=== PATIENT | male | born 1940 | race Caucasian/White ===

== ENCOUNTER 2024-11-18 20:11 | Inpatient (IN) ==
[2024-11-18 21:00] LABS: Hematocrit (blood only) 46.0 % (42.0-52.0); Hemoglobin 15.4 g/dl (14.0-18.0); Immature Granulocytes # (auto) 0.07 K/uL (0.01-0.20); Immature Granulocytes % (auto) 0.8 %; Mean Corpuscular Hemoglobin 30.0 pg (25.0-34.0); Mean Corpuscular Volume 89.5 fL (80.0-100.0); Platelet Count 199 K/uL (130-400); RDW Standard Deviation 41.1 fL (36.4-46.3); Red Blood Count 5.14 M/uL (4.70-6.10); White Blood Count 9.05 K/ul (4.8-10.8)
[2024-11-18 21:17] LABS: Alanine Aminotransferase 11.0 U/L (7-52); Albumin Globulin Ratio 1.2 (0.9-2); Alkaline Phosphatase 87.0 U/L (34-104); Anion Gap 10.0 (3-11); Bilirubin,Total 1.0 mg/dl (0.2-1.0); Blood Urea Nitrogen 13.0 mg/dl (6-23); Calcium 9.6 mg/dl (8.6-10.3); Carbon Dioxide 24.0 mmol/L (21-32); Chloride 103.0 mmol/L (98-107); Creatinine Clr Calc Pharmacy 55.6 ml/min; Globulin 3.6 gm/dl (2.5-4.0); Glucose 150.0 mg/dl (70-99(Fasting)); Magnesium 2.1 mg/dl (1.7-2.4); Potassium 4.1 mmol/L (3.5-5.1); Sodium 137.0 mmol/L (136-145); Total Protein 7.9 gm/dl (6.0-8.3)
--- NOTE | 2024-11-18 21:45 | Emergency Department Note ---
Impression & Plan Syncope Admission ED Provider Note HPI: History obtained from patient. The patient is a 83-year-old gentleman with history of CAD, who presents the emergency department with chief complaint of syncope. 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 Patient states that he was seated in a high chair at the time and did fall to the ground and hit his head. On arrival here to the ED the patient is alert, he states that he actually ate a sandwich prior to arrival to the ED and he thinks this helped with his symptoms. He states he did not eat earlier in the day. Patient denies any chest pain or shortness of breath. On arrival here to the ED the patient is otherwise hemodynamically stable, he does not have any focal deficits. ROS: - Per HPI Differential Diagnosis: Vasovagal event, arrhythmia to include SVT, atrial fibrillation with RVR, ventricular tachycardia, high degree heart block, aortic stenosis, ACS, amongst other potential pathologies. *Outpatient medications and allergy history reviewed. PE: General: Alert HEENT: Normocephalic, trachea midline Eyes: Extraocular eye movement is intact, no scleral erythema Pulmonary: Clear to auscultation bilaterally, no wheezing Cardio: Regular rate and rhythm GI: Abdomen is soft to palpation : No suprapubic tenderness MSK: No evidence of trauma or malformation of the extremities, no edema Skin: No evidence of rash Neuro: Alert, no focal deficits Psychiatric: Cooperative INDEPENDENT INTERPRETATIONS: court recording monitor: (As interpreted by myself): - An order was placed for continuous cardiac monitoring - Patient was noted to be in sinus rhythm with a rate of 60 EKG: (As interpreted by myself): Rate: 59 Rhythm: Sinus bradycardia with first-degree AV block Intervals: LA interval 268 ms, QRS 138 ms, otherwise within normal limits ST changes: No ST elevation Time: 2027 Chest x-ray: (As interpreted by myself): No acute disease Interventions provided in ED: - IV fluid bolus Medical Decision Making: IV was established and lab work obtained, patient was placed on court recording monitor. Lab work shows no leukocytosis, hemoglobin is normal, platelet count is normal, CMP does not show any evidence of any critical findings. Troponin is mildly elevated at 21.4, EKG per my interpretation shows a sinus bradycardia with a rate of 59, LA interval is slightly prolonged at 268 ms, no acute ischemic changes are noted. Chest x-ray does not show any evidence of acute disease. CT imaging of the head was obtained that did not show any evidence of any acute intracranial process. Patient was given IV fluids here in the ED, on my reassessment he tells me that he continues to feel well, he denies any chest pain or shortness of breath. Given the patient's history of CAD with syncopal event today and complete loss of consciousness, I do feel that he would benefit from admission for further workup and likely echocardiogram. Patient was in agreement. Case was discussed with the on-call hospitalist, Dr. Gomez, and the patient was placed for admission in stable condition. Consultants/Discussions held with other healthcare providers: - Hospitalist, Dr. Gomez Disposition discussion held by myself with: - Patient Diagnosis: 1. Syncope and collapse, acute 2. Closed head injury, acute 3. History of CAD, chronic 4. Elevated troponin, acute Disposition: Admission Connor Ballard DO Emergency Medicine Past Med/Surg History Problem List (Updated 08/16/21 @ 16:01 by Alexey Rick MD) RBBB (right bundle branch block) First degree atrioventricular block by electrocardiography Ectopic atrial rhythm Dyslipidemia Mitral regurgitation Hypertension Cardiac murmur ASCVD (arteriosclerotic cardiovascular disease) Proteinuria Colon cancer screening Encounter for pre-operative examination Medical History Arthritis Bradycardia Hyperlipidemia Hypertension Myocardial Infarction Surgical History H/O angioplasty History of arthroscopy History of tonsillectomy Family History Mother Family history of diabetes mellitus Other No family history of adverse response to anesthesia Social History Smoking Status: Never smoker Second Hand Exposure: No; Do You Dip or Chew Tobacco: No; Hx Alcohol Use: Yes Alcohol type: wine Preferred Language: Togolese Communication Ability: Effective Physical Therapy Supervisor Required: No Beliefs That Will Affect Care: None Current Living Situation: Alone Feels Safe at Home: Yes Assistive Devices: Glasses Allergies Allergies Allergy/AdvReac Type Severity Reaction Status Date / Time No Known Allergies Allergy Unknown Verified 11/18/24 22:16 Home Meds Home Medications Medication Instructions Recorded Confirmed atorvastatin 40 mg tablet 20 mg PO QDL 03/02/20 11/18/24 lisinopril 40 mg tablet 40 mg PO QDL 03/02/20 11/18/24 amlodipine 2.5 mg tablet 5 mg PO QDL 07/25/20 11/18/24 acetaminophen 325 mg tablet 975 mg PO Q6H PRN PAIN/FEVER 11/18/24 11/18/24 (Tylenol) albuterol sulfate 90 mcg/actuation 2 puff inhalation Q4H PRN Wheezing 11/18/24 11/18/24 aerosol inhaler aspirin 81 mg tablet,delayed 81 mg PO QDL 11/18/24 11/18/24 release cholecalciferol (vitamin D3) 25 50 mcg PO QDL 11/18/24 11/18/24 mcg (1,000 unit) capsule (Vitamin D3) ibuprofen 200 mg tablet 200 mg PO Q6H PRN PAIN/FEVER 11/18/24 11/18/24 sildenafil 100 mg tablet (Viagra) 100 mg PO DAILY PRN Erectile 11/18/24 11/18/24 Dysfunction Results & Data (ED) Vital Signs Vital Signs - 24 hr 11/18/24 20:15 11/18/24 21:00 11/18/24 21:36 Temperature 36.4 C Temperature Source Oral Pulse Rate 73 56 L Pulse Rate [Apical] 61 Pulse Rhythm Regular Respiratory Rate 16 20 18 Respiratory Effort / Characteristics Non-Labored Spontaneous Non-Labored Spontaneous Respiratory Depth Normal Normal Respiratory Pattern Regular Regular Blood Pressure 138/80 Blood Pressure [Right Arm] 121/59 L Blood Pressure Mean 99 Blood Pressure Mean [Right Arm] 79 Blood Pressure Position [Right Arm] Lying Pulse Oximetry 97 98 96 Oxygen Delivery Method Room Air Room Air Room Air Sepsis Recent Fever Within 48 Hours No Sepsis New/Unexplained Change in Mental Status No Sepsis Action Taken by Nursing No Action Required 11/18/24 22:00 11/18/24 22:31 11/18/24 23:00 Temperature Temperature Source Pulse Rate 52 L Pulse Rate [Apical] 54 L 52 L Pulse Rhythm Respiratory Rate 16 21 Respiratory Effort / Characteristics Non-Labored Non-Labored Spontaneous Respiratory Depth Normal Normal Respiratory Pattern Regular Regular Blood Pressure Blood Pressure [Right Arm] 110/66 118/73 Blood Pressure Mean Blood Pressure Mean [Right Arm] 80 88 Blood Pressure Position [Right Arm] Lying Lying Pulse Oximetry 96 97 Oxygen Delivery Method Room Air Room Air Sepsis Recent Fever Within 48 Hours Sepsis New/Unexplained Change in Mental Status Sepsis Action Taken by Nursing 11/19/24 00:09 Temperature Temperature Source Pulse Rate Pulse Rate [Apical] 55 L Pulse Rhythm Respiratory Rate 19 Respiratory Effort / Characteristics Non-Labored Spontaneous Respiratory Depth Normal Respiratory Pattern Regular Blood Pressure Blood Pressure [Right Arm] 143/87 H Blood Pressure Mean Blood Pressure Mean [Right Arm] 105 Blood Pressure Position [Right Arm] Lying Pulse Oximetry 98 Oxygen Delivery Method Room Air Sepsis Recent Fever Within 48 Hours Sepsis New/Unexplained Change in Mental Status Sepsis Action Taken by Nursing Laboratory Data 11/18/24 20:45 11/18/24 20:45 Lab Results 11/18/24 11/18/24 11/18/24 Range/Units 20:24 20:45 22:00 WBC 9.05 (4.8-10.8) K/ul RBC 5.14 (4.70-6.10) M/uL Hgb 15.4 (14.0-18.0) g/dl Hct 46.0 (42.0-52.0) % MCV 89.5 (80.0-100.0) fL MCH 30.0 (25.0-34.0) pg MCHC 33.5 (32.0-36.0) g/dL RDW Std Deviation 41.1 (36.4-46.3) fL RDW Coeff of Mike 12.5 (11.5-14.5) % Plt Count 199 (130-400) K/uL MPV 10.0 (9.4-12.4) fL Immature Gran % (Auto) 0.8 % Neut % (Auto) 80.2 % Lymph % (Auto) 10.9 % [place] % (Auto) 6.9 % Eos % (Auto) 0.6 % Baso % (Auto) 0.6 % Neut # (Auto) 7.27 H (1.40-6.50) K/uL Lymph # (Auto) 0.99 L (1.20-3.40) K/uL [place] # (Auto) 0.62 H (0.11-0.59) K/uL Eos # (Auto) 0.05 (0.00-0.50) K/uL Baso # (Auto) 0.05 (0.00-0.20) K/uL Immature Gran # (Auto) 0.07 (0.01-0.20) K/uL Sodium 137 (136-145) mmol/L Potassium 4.1 (3.5-5.1) mmol/L Chloride 103 (98-107) mmol/L Carbon Dioxide 24 (21-32) mmol/L Anion Gap 10 (3-11) BUN 13 (6-23) mg/dl Creatinine 1.19 (0.6-1.4) mg/dl Est Cr Clr Drug Dosing 55.6 ml/min eGFR 61.37 BUN/Creatinine Ratio 10.9 (10-20) Glucose 150 H (70-99(Fasting)) mg/dl POC Glucose 139 H (70-99) mg/dl Calcium 9.6 (8.6-10.3) mg/dl Magnesium 2.1 (1.7-2.4) mg/dl Total Bilirubin 1.0 (0.2-1.0) mg/dl AST 16 (13-39) U/L ALT 11 (7-52) U/L Alkaline Phosphatase 87 (34-104) U/L Troponin I High Sens 21.4 H (0-20) pg/ml Total Protein 7.9 (6.0-8.3) gm/dl Albumin 4.3 (3.4-5.0) gm/dl Globulin 3.6 (2.5-4.0) gm/dl Albumin/Globulin Ratio 1.2 (0.9-2) Urine Color Dark Yellow Urine Appearance Clear (Clear) Urine pH 5.0 (4.5-7.5) Ur Specific [place] 1.027 (1.000-1.030) Urine Protein 3+ H (Negative) Urine Glucose (UA) Negative (Negative) Urine Ketones Trace H (Negative) Urine Blood Negative (Negative) Urine Nitrite Negative (Negative) Urine Bilirubin 1+ H (Negative) Urine Urobilinogen Negative (Negative) Ur Leukocyte Esterase Trace H (Negative) Urine WBC (Auto) 0-5 (0-5) /hpf Urine RBC (Auto) 0-2 (0-2) /hpf U Hyaline Cast (Auto) >20 H (0-2) /lpf U Epithel Cells (Auto) 0-2 (0-2) /hpf Urine Bacteria (Auto) None Seen (None Seen) Talc Crystals Present H (None Prsent) Urine Comment Administered Medications Discontinued Medications Sodium Chloride (Nss) 500 mls @ 999 mls/hr IV .Q31M ONE Stop: 11/18/24 22:04 Last Infusion: 11/18/24 23:31 Dose: Infused Documented By: Admin: 11/18/24 22:11 Dose: 999 mls/hr Documented By: ANGIE Imaging Data Radiologist's Impression: Head CT 11/18/24 21:34 Exam(s): CT HEAD Without Contrast EXAM: CT Head Without Intravenous Contrast CLINICAL HISTORY: Reason for exam: head injury. TECHNIQUE: Axial computed tomography images of the head/brain without intravenous contrast. CTDI is 35.65 mGy and DLP is 625.8 mGy-cm. Automated exposure control was utilized for the study. A dose lowering technique was utilized adhering to the principles of ALARA. COMPARISON: No relevant prior studies available. FINDINGS: Brain: No acute intracranial hemorrhage. There is some decreased attenuation within the white matter.. Ventricles: There is prominence of the ventricular system with deepening of the sulci consistent with cortical and central atrophy. Bones/joints: Unremarkable. No acute fracture. Soft tissues: Unremarkable. Sinuses: Unremarkable as visualized. No acute sinusitis. Mastoid air cells: Unremarkable as visualized. No mastoid effusion. IMPRESSION: Atrophy. Nonspecific white matter disease. Electronically signed by: Gabriel Whiting MD 11/18/24 23:10 PM Chest X-Ray 11/18/24 23:28 Exam(s): XR CXR 1 VIEW EXAM: XR Chest, 1 View CLINICAL HISTORY: Reason for exam: syncope. TECHNIQUE: Frontal view of the chest. COMPARISON: No relevant prior studies available. FINDINGS: Lungs: . No consolidation. Pleural space: No pleural effusion is seen. No pneumothorax. Heart: The heart is top normal in size.. Mediastinum: There is uncoiling calcification thoracic aorta.. IMPRESSION: No acute pulmonary disease. Electronically signed by: Gabriel Whiting MD 11/19/24 00:04 AM Discharge Plan Visit Data Chief Complaint: Syncope Stated Complaint: LIGHTHEADED, SYNCOPE, HIT HEAD ED Provider: Bialas,Connor A. Prescriptions Prescriptions: No Action atorvastatin 40 mg Tablet 20 mg PO QDL lisinopril 40 mg Tablet 40 mg PO QDL amlodipine 2.5 mg Tablet 5 mg PO QDL acetaminophen [Tylenol] 325 mg Tablet 975 mg PO Q6H PRN (Reason: PAIN/FEVER) aspirin 81 mg Tablet,Delayed Release (Dr/Ec) 81 mg PO QDL sildenafil [Viagra] 100 mg Tablet 100 mg PO DAILY PRN (Reason: Erectile Dysfunction) Rx Instructions: administer 30 minutes to 4 hours before activity ibuprofen 200 mg Tablet 200 mg PO Q6H PRN (Reason: PAIN/FEVER) albuterol sulfate 90 mcg/actuation Hfa Aerosol Inhaler 2 puff INHALATION Q4H PRN (Reason: Wheezing) cholecalciferol (vitamin D3) [Vitamin D3] 25 mcg (1,000 unit) Capsule 50 mcg PO QDL Discharge Problem:
[2024-11-18] MEDS: SODIUM CHLORIDE 0.9% 500 ML IV ONE (22:11)
[2024-11-18 22:25] LABS: Appearance Urine Clear (Clear); Bacteria Urine Automated None Seen (None Seen); Cast Urine Automated >20 /lpf (0-2); Epithelial Cell Urine Auto 0-2 /hpf (0-2); Glucose Urine UA Negative (Negative); RBC Urine Automated 0-2 /hpf (0-2); Starch Talc Urine Present (None Prsent); WBC Urine Automated 0-5 /hpf (0-5)
--- NOTE | 2024-11-18 23:11 | CT Scan Report ---
Exam(s): CT HEAD Without Contrast EXAM: CT Head Without Intravenous Contrast CLINICAL HISTORY: Reason for exam: head injury. TECHNIQUE: Axial computed tomography images of the head/brain without intravenous contrast. CTDI is 35.65 mGy and DLP is 625.8 mGy-cm. Automated exposure control was utilized for the study. A dose lowering technique was utilized adhering to the principles of ALARA. COMPARISON: No relevant prior studies available. FINDINGS: Brain: No acute intracranial hemorrhage. There is some decreased attenuation within the white matter.. Ventricles: There is prominence of the ventricular system with deepening of the sulci consistent with cortical and central atrophy. Bones/joints: Unremarkable. No acute fracture. Soft tissues: Unremarkable. Sinuses: Unremarkable as visualized. No acute sinusitis. Mastoid air cells: Unremarkable as visualized. No mastoid effusion. IMPRESSION: Atrophy. Nonspecific white matter disease. Electronically signed by: Gabriel Whiting MD 11/18/24 23:10 PM
--- NOTE | 2024-11-19 00:05 | XRay Report ---
Exam(s): XR CXR 1 VIEW EXAM: XR Chest, 1 View CLINICAL HISTORY: Reason for exam: syncope. TECHNIQUE: Frontal view of the chest. COMPARISON: No relevant prior studies available. FINDINGS: Lungs: . No consolidation. Pleural space: No pleural effusion is seen. No pneumothorax. Heart: The heart is top normal in size.. Mediastinum: There is uncoiling calcification thoracic aorta.. IMPRESSION: No acute pulmonary disease. Electronically signed by: Gabriel Whiting MD 11/19/24 00:04 AM
--- NOTE | 2024-11-19 00:35 | History & Physical Report ---
Date of Service November 19, 2024 Assessment & Plan (1) Syncope: (2) Cardiac murmur: (3) Ectopic atrial rhythm: (4) First degree atrioventricular block by electrocardiography: Plan The patient is an 83-year-old male with a past medical history including coronary artery disease status post [place] 2002, hypertension, CKD, dyslipidemia, right bundle branch block, first-degree heart block, ED, and asthma. 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 He reports that he did bump the back of his head when he fell, but has no residual discomfort. He had no previous occurrence of passing out. He reports that he has a dental infection that has caused him to eat significantly less than usual over the past day and a half, and was to see a dentist in the next few days. He and a friend went to [employer] after work, and he reports that he feels better after eating a sandwich there. He reports that he sees the [facility] as his primary physician, either in [place], or if it is more significant he goes to [place]. Workup in the emergency department included a CT scan of head which s howed age-appropriate atrophy, chest x-ray which was negative, chemistry profile showed a glucose of 150, and CBC with differential was normal. Troponin was 21.4, with upper range 20.0. EKG shows sinus bradycardia with first-degree AV block with premature supraventricular complexes. Left axis deviation, right bundle branch block, septal infarct age undetermined. [facility] Syncope- Differential including but not limited to: Hypoglycemia, vasovagal, heart arrhythmia, dehydration, others Hypertension/ectopic atrial rhythm/CAD/history of [place] 2003/heart murmur- The patient will be admitted to telemetry for serial cardiac enzymes, serial EKG's, cardiac rhythm monitoring and a 2-D echocardiogram with Dopplers. Continue amlodipine every morning, lisinopril every afternoon, aspirin 81 mg daily. Initial troponin 21.4. Repeat now and in the a.m. EKG with right bundle branch block and first-degree heart block, no acute ST-T changes Heart murmur on examination noted, patient with reported history of mitral regurgitation CKD- Creatinine 1.19 Previous records from 2021 indicate creatinine 0.95 Hyperlipidemia- Continue atorvastatin Hyperglycemia- Glucose 150 on admission No record of diabetes or prediabetes Check hemoglobin A1c in the a.m. 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 He reports that he did bump the back of his head when he fell, but has no residual discomfort. He had no previous occurrence of passing out. He reports that he has a dental infection that has caused him to eat significantly less than usual over the past day and a half, and was to see a dentist in the next few days. He and a friend went to [employer] after work, and he reports that he feels better after eating a sandwich there. He reports that he sees the [facility] as his primary physician, either in [place], or if it is more significant he goes to [place]. Primary Care Provider: NO PCP The patient is an 83-year-old male with a past medical history including coronary artery disease status post [place] 2002, hypertension, CKD, dyslipidemia, right bundle branch block, first-degree heart block, ED, and asthma. 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 He reports that he did bump the back of his head when he fell, but has no residual discomfort. He had no previous occurrence of passing out. He reports that he has a dental infection that has caused him to eat significantly less than usual over the past day and a half, and was to see a dentist in the next few days. He and a friend went to [employer] after work, and he reports that he feels better after eating a sandwich there. He reports that he sees the [facility] as his primary physician, either in [place], or if it is more significant he goes to [place]. Workup in the emergency department included a CT scan of head which showed age-appropriate atrophy, chest x-ray which was negative, chemistry profile showed a glucose of 150, and CBC with differential was normal. Troponin was 21.4, with upper range 20.0. EKG shows sinus bradycardia with first-degree AV block with premature supraventricular complexes. Left axis deviation, right bundle branch block, septal infarct age undetermined. [facility] Allergies Allergy/AdvReac Type Severity Reaction Status Date / Time No Known Allergies Allergy Unknown Verified 11/18/24 22:16 Home Medications Medication Instructions Recorded Confirmed Type atorvastatin 40 mg tablet 20 mg PO QDL 03/02/20 11/18/24 History lisinopril 40 mg tablet 40 mg PO QDL 03/02/20 11/18/24 History amlodipine 2.5 mg tablet 5 mg PO QDL 07/25/20 11/18/24 History acetaminophen 325 mg tablet 975 mg PO Q6H PRN PAIN/FEVER 11/18/24 11/18/24 History (Tylenol) albuterol sulfate 90 mcg/actuation 2 puff inhalation Q4H PRN Wheezing 11/18/24 11/18/24 History aerosol inhaler aspirin 81 mg tablet,delayed 81 mg PO QDL 11/18/24 11/18/24 History release cholecalciferol (vitamin D3) 25 50 mcg PO QDL 11/18/24 11/18/24 History mcg (1,000 unit) capsule (Vitamin D3) ibuprofen 200 mg tablet 200 mg PO Q6H PRN PAIN/FEVER 11/18/24 11/18/24 History sildenafil 100 mg tablet (Viagra) 100 mg PO DAILY PRN Erectile 11/18/24 11/18/24 History Dysfunction Past Med/Surg History Problem List (Updated 11/19/24 @ 00:37 by Background Damayela) Syncope (Acute) RBBB (right bundle branch block) First degree atrioventricular block by electrocardiography Ectopic atrial rhythm Dyslipidemia Mitral regurgitation Hypertension Cardiac murmur ASCVD (arteriosclerotic cardiovascular disease) Proteinuria Colon cancer screening Encounter for pre-operative examination Medical History Arthritis Bradycardia Hyperlipidemia Hypertension Myocardial Infarction Surgical History H/O angioplasty History of arthroscopy History of tonsillectomy Family History Mother Family history of diabetes mellitus Other No family history of adverse response to anesthesia Social History Smoking Status: Never smoker Second Hand Exposure: No; Do You Dip or Chew Tobacco: No; Hx Alcohol Use: Yes Alcohol type: wine Preferred Language: Armenian Communication Ability: Effective Product Advisor Required: No Beliefs That Will Affect Care: None Current Living Situation: Alone Feels Safe at Home: Yes Assistive Devices: Glasses Review of Systems Review of Systems: The patient denies chest pain, palpitations, shortness of breath, dyspnea on exertion, cough, lower extremity swelling, sore throat, fevers, chills, sweats, fatigue, nausea, vomiting, diarrhea , constipation, abdominal pain, pelvic pain, blood in urine or stool, dysuria, urinary frequency or urgency, lightheadedness, dizziness, headache, rash, abnormal bruising or bleeding, imbalance, focal or generalized weakness, numbness or tingling in arms or legs, generalized arthralgias or myalgias, back or neck pain, or night sweats. The review of systems is otherwise negative other than for that already noted above, and at least 10 systems have been reviewed. Physical Exam Physical Exam: The patient is awake, alert and oriented 3, well developed and well nourished, normocephalic and atraumatic, lying in bed and in no acute distress. HEENT--PERRL, EOMI, mucous membranes and oropharynx normal Neck--supple. No JVD. No bruits. Thyroid normal, trachea midline, no adenopathy. Heart--normal S1 and S2. Occasional premature contractions. 2/6 systolic murmur at apex and left lower sternal border. Lungs--clear bilaterally, no respiratory distress, no accessory muscle use. Abdomen--normal bowel sounds and soft. Nontender. Nondistended, no hernias or masses, no organomegaly. Extremities--no cyanosis or clubbing. No edema. There are good distal pulses b/l. Dermatologic--normal skin turgor, normal color, no abnormal lymph nodes, no rash. Neurologic--cranial nerves II through XII grossly intact. Rheumatologic--normal range of motion. Psychiatric--normal affect. Results & Data Results & Data Vital Signs (Past 12 Hours) Vital Signs Temp Pulse Pulse Resp BP BP Pulse Ox 11/19/24 00:09 55 L 19 143/87 H 98 11/18/24 23:00 52 L 21 118/73 97 11/18/24 22:31 52 L 11/18/24 22:00 54 L 16 110/66 96 11/18/24 21:36 56 L 18 96 11/18/24 21:00 61 20 121/59 L 98 11/18/24 20:15 36.4 C 73 16 138/80 97 O2 Del Method 11/19/24 00:09 Room Air 11/18/24 23:00 Room Air 11/18/24 22:31 11/18/24 22:00 Room Air 11/18/24 21:36 Room Air 11/18/24 21:00 Room Air 11/18/24 20:15 Room Air Laboratory Results Laboratory Results WBC 9.05 K/ul (4.8-10.8) 11/18/24 20:45 RBC 5.14 M/uL (4.70-6.10) 11/18/24 20:45 Hgb 15.4 g/dl (14.0-18.0) 11/18/24 20:45 Hct 46.0 % (42.0-52.0) 11/18/24 20:45 MCV 89.5 fL (80.0-100.0) 11/18/24 20:45 MCH 30.0 pg (25.0-34.0) 11/18/24 20:45 MCHC 33.5 g/dL (32.0-36.0) 11/18/24 20:45 RDW Std Deviation 41.1 fL (36.4-46.3) 11/18/24 20:45 RDW Coeff of Mike 12.5 % (11.5-14.5) 11/18/24 20:45 Plt Count 199 K/uL (130-400) 11/18/24 20:45 MPV 10.0 fL (9.4-12.4) 11/18/24 20:45 Immature Gran % (Auto) 0.8 % 11/18/24 20:45 Neut % (Auto) 80.2 % 11/18/24 20:45 Lymph % (Auto) 10.9 % 11/18/24 20:45 [place] % (Auto) 6.9 % 11/18/24 20:45 Eos % (Auto) 0.6 % 11/18/24 20:45 Baso % (Auto) 0.6 % 11/18/24 20:45 Neut # (Auto) 7.27 K/uL (1.40-6.50) H 11/18/24 20:45 Lymph # (Auto) 0.99 K/uL (1.20-3.40) L 11/18/24 20:45 [place] # (Auto) 0.62 K/uL (0.11-0.59) H 11/18/24 20:45 Eos # (Auto) 0.05 K/uL (0.00-0.50) 11/18/24 20:45 Baso # (Auto) 0.05 K/uL (0.00-0.20) 11/18/24 20:45 Immature Gran # (Auto) 0.07 K/uL (0.01-0.20) 11/18/24 20:45 Sodium 137 mmol/L (136-145) 11/18/24 20:45 Potassium 4.1 mmol/L (3.5-5.1) 11/18/24 20:45 Chloride 103 mmol/L (98-107) 11/18/24 20:45 Carbon Dioxide 24 mmol/L (21-32) 11/18/24 20:45 Anion Gap 10 (3-11) 11/18/24 20:45 BUN 13 mg/dl (6-23) 11/18/24 20:45 Creatinine 1.19 mg/dl (0.6-1.4) 11/18/24 20:45 Est Cr Clr Drug Dosing 55.6 ml/min 11/18/24 20:45 eGFR 61.37 11/18/24 20:45 BUN/Creatinine Ratio 10.9 (10-20) 11/18/24 20:45 Glucose 150 mg/dl (70-99(Fasting)) H 11/18/24 20:45 POC Glucose 139 mg/dl (70-99) H 11/18/24 20:24 Calcium 9.6 mg/dl (8.6-10.3) 11/18/24 20:45 Magnesium 2.1 mg/dl (1.7-2.4) 11/18/24 20:45 Total Bilirubin 1.0 mg/dl (0.2-1.0) 11/18/24 20:45 AST 16 U/L (13-39) 11/18/24 20:45 ALT 11 U/L (7-52) 11/18/24 20:45 Alkaline Phosphatase 87 U/L (34-104) 11/18/24 20:45 Troponin I High Sens 21.4 pg/ml (0-20) H 11/18/24 20:45 Total Protein 7.9 gm/dl (6.0-8.3) 11/18/24 20:45 Albumin 4.3 gm/dl (3.4-5.0) 11/18/24 20:45 Globulin 3.6 gm/dl (2.5-4.0) 11/18/24 20:45 Albumin/Globulin Ratio 1.2 (0.9-2) 11/18/24 20:45 Urine Color Dark Yellow 11/18/24 22:00 Urine Appearance Clear (Clear) 11/18/24 22:00 Urine pH 5.0 (4.5-7.5) 11/18/24 22:00 Ur Specific Blanch 1.027 (1.000-1.030) 11/18/24 22:00 Urine Protein 3+ (Negative) H 11/18/24 22:00 Urine Glucose (UA) Negative (Negative) 11/18/24 22:00 Urine Ketones Trace (Negative) H 11/18/24 22:00 Urine Blood Negative (Negative) 11/18/24 22:00 Urine Nitrite Negative (Negative) 11/18/24 22:00 Urine Bilirubin 1+ (Negative) H 11/18/24 22:00 Urine Urobilinogen Negative (Negative) 11/18/24 22:00 Ur Leukocyte Esterase Trace (Negative) H 11/18/24 22:00 Urine WBC (Auto) 0-5 /hpf (0-5) 11/18/24 22:00 Urine RBC (Auto) 0-2 /hpf (0-2) 11/18/24 22:00 U Hyaline Cast (Auto) >20 /lpf (0-2) H 11/18/24 22:00 U Epithel Cells (Auto) 0-2 /hpf (0-2) 11/18/24 22:00 Urine Bacteria (Auto) None Seen (None Seen) 11/18/24 22:00 Talc Crystals Present (None Prsent) H 11/18/24 22:00 Urine Comment 11/18/24 22:[address] 11/18/24 21:34 Exam(s): CT HEAD Without Contrast EXAM: CT Head Without Intravenous Contrast CLINICAL HISTORY: Reason for exam: head injury. TECHNIQUE: Axial computed tomography images of the head/brain without intravenous contrast. CTDI is 35.65 mGy and DLP is 625.8 mGy-cm. Automated exposure control was utilized for the study. A dose lowering technique was utilized adhering to the principles of ALARA. COMPARISON: No relevant prior studies available. FINDINGS: Brain: No acute intracranial hemorrhage. There is some decreased attenuation within the white matter.. Ventricles: There is prominence of the ventricular system with deepening of the sulci consistent with cortical and central atrophy. Bones/joints: Unremarkable. No acute fracture. Soft tissues: Unremarkable. Sinuses: Unremarkable as visualized. No acute sinusitis. Mastoid air cells: Unremarkable as visualized. No mastoid effusion. IMPRESSION: Atrophy. Nonspecific white matter disease. Electronically signed by: Gabriel Whiting MD 11/18/24 23:10 PM Chest X-Ray 11/18/24 23:28 Exam(s): XR CXR 1 VIEW EXAM: XR Chest, 1 View CLINICAL HISTORY: Reason for exam: syncope. TECHNIQUE: Frontal view of the chest. COMPARISON: No relevant prior studies available. FINDINGS: Lungs: . No consolidation. Pleural space: No pleural effusion is seen. No pneumothorax. Heart: The heart is top normal in size.. Mediastinum: There is uncoiling calcification thoracic aorta.. IMPRESSION: No acute pulmonary disease. Electronically signed by: Gabriel Whiting MD 11/19/24 00:04 AM Code Status & VTE Plan Code Status Full code VTE Prophylaxis Plan VTE Prophylaxis will be ordered: Yes PG Care Time/CCT Total # of Minutes Spent Total Time Spent with Patient: Total time spent is greater than 50% in coordination of care (as documented) at patient's floor/unit and/or counseling patient: Coding Level of Care Code 82170 INT INP/OBS CARE 3/75MIN Diagnoses Syncope R55 Cardiac murmur R01.1 Ectopic atrial rhythm I49.1 First degree atrioventricular block by electrocardiography I44.0
[2024-11-19] MEDS ORDERED: NITROGLYCERIN SL 0.4 MG/TAB TAB SL PRN (01:55)
[2024-11-19] MEDS ORDERED: ALBUTEROL HFA 8 GM INHALER INH PRN (01:55)
[2024-11-19 06:23] LABS: Hematocrit (blood only) 42.7 % (42.0-52.0); Hemoglobin 14.0 g/dl (14.0-18.0); Immature Granulocytes # (auto) 0.04 K/uL (0.01-0.20); Immature Granulocytes % (auto) 0.6 %; Mean Corpuscular Hemoglobin 29.4 pg (25.0-34.0); Mean Corpuscular Volume 89.7 fL (80.0-100.0); Platelet Count 165 K/uL (130-400); RDW Standard Deviation 41.1 fL (36.4-46.3); Red Blood Count 4.76 M/uL (4.70-6.10); White Blood Count 6.89 K/ul (4.8-10.8)
[2024-11-19 06:53] LABS: Anion Gap 9.0 (3-11); Blood Urea Nitrogen 13.0 mg/dl (6-23); Calcium 9.1 mg/dl (8.6-10.3); Carbon Dioxide 25.0 mmol/L (21-32); Chloride 105.0 mmol/L (98-107); Creatinine Clr Calc Pharmacy 74.9 ml/min; Glucose 95.0 mg/dl (70-99(Fasting)); Potassium 3.4 mmol/L (3.5-5.1); Sodium 139.0 mmol/L (136-145)
[2024-11-19 07:19] LABS: Hemoglobin A1C 6.0 % (4.5-5.6)
--- NOTE | 2024-11-19 10:32 | Cardiology Consultation ---
Date of Consultation November 19, 2024 Assessment & Plan (1) Syncope: (2) Aortic stenosis: (3) Hypertension: (4) CAD (coronary artery disease): (5) Arrhythmia: Plan ASSESSMENT/PLAN: 1. Syncope: Etiology uncertain but given acute event and very quick recovery feeling back to baseline, concerning for conduction abnormality. Continue telemetry. Avoid medications that can slow heart rate or further black AV node. At time of consultation this morning, there was no findings on telemetry or ECG to indicate pacemaker. If telemetry here remains unremarkable, recommend 30-day event monitor and if unremarkable, consider loop recorder in the outpatient setting. Carotid duplex ordered. Echo ordered. No driving, which was discussed with patient while working up possible etiologies in the outpatient setting. 2. Cardiac arrhythmia: He reports a history of ablation through the [facility] system. Requested records for review with hospital unit clerk. 3. CAD: Previous NM reported and recalls having nonobstructive CAD per his report. Continue risk factor modification. No angina. Continue statin therapy, aspirin 81 mg daily. 4. Aortic stenosis: Nonsevere. Would not account for syncope at current degree of stenosis. Monitor in the outpatient setting with repeat echo in 1 year. 5. Hypertension: Blood pressure acceptable. No changes made today. 6. Disposition: Cardiology will continue to follow. Patient care communicated with primary hospitalist service, Dr. Blair. On discharge, can follow-up with his [facility] rand cementer or with Dr. Rick, who he has seen through [facility] within the past 3 years. Thank you for allowing me to participate in the care of your patient. Please call for any other questions or concerns. Sincerely, Denton Casey M.D. History of Present Illness Reason for Consultation: Syncope Requesting Physician: Conor Blair MD Attending Physician: Conor Blair MD History of Present Illness Mr. Sheehan is a pleasant 83-year-old gentleman with a history significant for CAD, myocardial infarction (02/09/2003), CKD, hypertension, and dyslipidemia. He reports cardiac ablation (does not recall details) in the past year. He has been seen in the outpatient cardiology office by Dr. Rick and also reports being seen by cardiology through the [facility] more recently and undergoing an ablation within the past year, but he does not recall the arrhythmia for any further details. He initially stated that he has not seen cardiology since his myocardial infarction in 2002. Throughout the conversation however he mentions seeing Dr. Trinidad shortly after his NM and there are office notes through [facility] in [address] Rick. Later in the conversation, he mentioned seeing [facility] cardiology. He recalls myocardial infarction as a substernal chest tightness and was transferred from this facility in 2002 to [facility] where he underwent cardiac catheterization. He recalls being told that he had CAD but did not require intervention per his report. 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 He believes he felt a "tad" of dizziness just prior to losing consciousness. His student told him that he appeared pale. He apparently regained consciousness within a few seconds and when he woke up, he felt back to baseline. He denies chest pain, palpitations, shortness of breath prior to or following the event. He denies lightheadedness or dizziness upon regaining consciousness. He was helped up and walked down a flight of stairs to be driven to the hospital, stopping at [employer] on the way to get a hamburger. He admits that he had not eaten on the day of presentation or the day prior due to dental issues. He recalls an episode of lightheadedness at night 1 to 2 weeks ago, causing him to lay down. He has not had any angina, previous sy ncope, shortness of breath, palpitations, edema, melena, hematochezia, hematuria, nausea, vomiting, or diarrhea. Review of systems: As above. Family history: Father had NM at the age of 62 and . Mother had diabetes. Social history: Denies tobacco, alcohol, or drug abuse. Lives alone. Not . No children. 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 He was unaccompanied. Allergies Allergy/AdvReac Type Severity Reaction Status Date / Time No Known Allergies Allergy Unknown Verified 11/18/24 22:16 Home Medications Medication Instructions Recorded Confirmed Type atorvastatin 40 mg tablet 20 mg PO QDL 03/02/20 11/18/24 History lisinopril 40 mg tablet 40 mg PO QDL 03/02/20 11/18/24 History amlodipine 2.5 mg tablet 5 mg PO QDL 07/25/20 11/18/24 History acetaminophen 325 mg tablet 975 mg PO Q6H PRN PAIN/FEVER 11/18/24 11/18/24 History (Tylenol) albuterol sulfate 90 mcg/actuation 2 puff inhalation Q4H PRN Wheezing 11/18/24 11/18/24 History aerosol inhaler aspirin 81 mg tablet,delayed 81 mg PO QDL 11/18/24 11/18/24 History release cholecalciferol (vitamin D3) 25 50 mcg PO QDL 11/18/24 11/18/24 History mcg (1,000 unit) capsule (Vitamin D3) ibuprofen 200 mg tablet 200 mg PO Q6H PRN PAIN/FEVER 11/18/24 11/18/24 History sildenafil 100 mg tablet (Viagra) 100 mg PO DAILY PRN Erectile 11/18/24 11/18/24 History Dysfunction Problem List (Updated 11/19/24 @ 18:52 by Donny Casey MD) Arrhythmia CAD (coronary artery disease) Aortic stenosis Syncope (Acute) RBBB (right bundle branch block) First degree atrioventricular block by electrocardiography Ectopic atrial rhythm Dyslipidemia Mitral regurgitation Hypertension Cardiac murmur ASCVD (arteriosclerotic cardiovascular disease) Proteinuria Colon cancer screening Encounter for pre-operative examination Patient History Medical History Arthritis Bradycardia per pt, HR runs in 50s Myocardial Infarction ~2002. no stents. [facility] [place] Hyperlipidemia Hypertension Surgical History H/O angioplasty History of arthroscopy History of tonsillectomy Family History Mother Family history of diabetes mellitus Other No family history of adverse response to anesthesia Social History Smoking Status: Never smoker Second Hand Exposure: No; Do You Dip or Chew Tobacco: No; Hx Alcohol Use: Yes Alcohol type: beer Hx Substance Use: No Preferred Language: Martiniquais Communication Ability: Effective Missionary Coordinator Required: No Beliefs That Will Affect Care: None Current Living Situation: Alone Feels Safe at Home: No Is there a partner from a previous relationship who is making you feel unsafe now?: No Safety Concerns: Feels Safe At This Time Assistive Devices: Cane and Glasses Physical Exam Physical Exam: Gen.: No acute distress. Alert and oriented. HEENT: Anicteric sclera. Neck: No JVD. No bruits. Normal carotid upstrokes bilaterally. Cardiac: Regular. Normal S1-S2. 2/6 early peaking systolic ejection murmur best heard at the right upper sternal border. Pulmonary: Clear to auscultation bilaterally without wheezes, rales, or rhonchi. Abdomen: Soft, nontender, nondistended, with normoactive bowel sounds. No bruits noted. Extremities: 2+ radial pulses bilaterally. 2+ posterior tibialis pulses bilaterally. No edema or cyanosis. Results & Data Vital Signs (Past 12 Hours) Vital Signs Temp Pulse Pulse Resp BP Pulse Ox O2 Del Method 11/19/24 07:00 36.6 C 55 L 20 128/75 96 Room Air 11/19/24 05:14 36.5 C 58 L 19 153/78 H 97 Room Air 11/19/24 05:14 54 L 11/19/24 04:33 52 L 18 151/80 H 98 Room Air 11/19/24 01:53 56 L 11/19/24 01:16 58 L 19 137/77 96 Room Air 11/19/24 00:09 55 L 19 143/87 H 98 Room Air 11/18/24 23:00 52 L 21 118/73 97 Room Air 11/18/24 22:31 52 L Laboratory Results Laboratory Results - last 24 hr 11/18/24 11/18/24 11/18/24 20:24 20:45 22:00 WBC 9.05 RBC 5.14 Hgb 15.4 Hct 46.0 MCV 89.5 MCH 30.0 MCHC 33.5 RDW Std Deviation 41.1 RDW Coeff of Mike 12.5 Plt Count 199 MPV 10.0 Immature Gran % (Auto) 0.8 Neut % (Auto) 80.2 Lymph % (Auto) 10.9 Henry % (Auto) 6.9 Eos % (Auto) 0.6 Baso % (Auto) 0.6 Neut # (Auto) 7.27 H Lymph # (Auto) 0.99 L Henry # (Auto) 0.62 H Eos # (Auto) 0.05 Baso # (Auto) 0.05 Immature Gran # (Auto) 0.07 Sodium 137 Potassium 4.1 Chloride 103 Carbon Dioxide 24 Anion Gap 10 BUN 13 Creatinine 1.19 Est Cr Clr Drug Dosing 55.6 eGFR 61.37 BUN/Creatinine Ratio 10.9 Glucose 150 H POC Glucose 139 H Estimat Average Glucose Hemoglobin A1c Calcium 9.6 Phosphorus Magnesium 2.1 Total Bilirubin 1.0 AST 16 ALT 11 Alkaline Phosphatase 87 Troponin I High Sens 21.4 H Total Protein 7.9 Albumin 4.3 Globulin 3.6 Albumin/Globulin Ratio 1.2 Urine Color Dark Yellow Urine Appearance Clear Urine pH 5.0 Ur Specific Kemp 1.027 Urine Protein 3+ H Urine Glucose (UA) Negative Urine Ketones Trace H Urine Blood Negative Urine Nitrite Negative Urine Bilirubin 1+ H Urine Urobilinogen Negative Ur Leukocyte Esterase Trace H Urine WBC (Auto) 0-5 Urine RBC (Auto) 0-2 U Hyaline Cast (Auto) >20 H U Epithel Cells (Auto) 0-2 Urine Bacteria (Auto) None Seen Talc Crystals Present H Urine Comment Nasal Screen MRSA (PCR) 11/19/24 11/19/24 11/19/24 01:06 05:00 05:57 WBC 6.89 RBC 4.76 Hgb 14.0 Hct 42.7 MCV 89.7 MCH 29.4 MCHC 32.8 RDW Std Deviation 41.1 RDW Coeff of Mike 12.5 Plt Count 165 MPV 10.1 Immature Gran % (Auto) 0.6 Neut % (Auto) 62.4 Lymph % (Auto) 21.9 Henry % (Auto) 12.5 Eos % (Auto) 2.0 Baso % (Auto) 0.6 Neut # (Auto) 4.30 Lymph # (Auto) 1.51 Henry # (Auto) 0.86 H Eos # (Auto) 0.14 Baso # (Auto) 0.04 Immature Gran # (Auto) 0.04 Sodium 139 Potassium 3.4 L Chloride 105 Carbon Dioxide 25 Anion Gap 9 BUN 13 Creatinine 0.88 D Est Cr Clr Drug Dosing 74.9 eGFR 86.39 BUN/Creatinine Ratio 14.8 Glucose 95 POC Glucose Estimat Average Glucose 126 Hemoglobin A1c 6.0 H Calcium 9.1 Phosphorus 3.0 Magnesium Total Bilirubin AST ALT Alkaline Phosphatase Troponin I High Sens 16.9 D 19.1 Total Protein Albumin 3.9 Globulin Albumin/Globulin Ratio Urine Color Urine Appearance Urine pH Ur Specific Kemp Urine Protein Urine Glucose (UA) Urine Ketones Urine Blood Urine Nitrite Urine Bilirubin Urine Urobilinogen Ur Leukocyte Esterase Urine WBC (Auto) Urine RBC (Auto) U Hyaline Cast (Auto) U Epithel Cells (Auto) Urine Bacteria (Auto) Talc Crystals Urine Comment Nasal Screen MRSA (PCR) Negative Diagnostic Findings ECHO 11/19/24: 1. Normal left ventricular size with hyperdynamic systolic function. EF > 70%. No regional wall motion abnormalities. Moderate concentric left ventricular hypertrophy. 2. Moderate aortic stenosis. 3. Normal estimated right ventricular systolic pressure. Chest x-ray 11/18/2024: No acute process per radiology. CT head 11/18/2024: Atrophy per radiology. Nonspecific white matter disease. Labs reviewed and notable for normal blood counts, stable renal function, normal transaminase levels, slightly elevated troponin on presentation and trending downward, Telemetry personally reviewed: Sinus rhythm. PVCs. No arrhythmia. History and physical report reviewed. ECG personally reviewed 11/18/2024 at 2828: Sinus bradycardia 59 bpm. First- degree AV block. Premature supraventricular ectopic complexes. RBBB. Possible septal infarct. Prior cardiology note reviewed from 01/01/2022. Carotid duplex 11/19/2024: No significant stenosis per radiology. Medications Administered Current Inpatient Medications Acetaminophen (Acetaminophen 325 Mg Tab) 650 mg PO Q6H PRN PRN Reason: Pain or Fever Stop: 12/19/24 01:54 Albuterol (Albuterol Hfa 8 Gm Inhaler) 2 puffs INH Q4H PRN PRN Reason: Wheezing Stop: 12/19/24 01:54 Amlodipine Besylate (Amlodipine Besylate 5 Mg Tab) 5 mg PO QAM JATINDER Stop: 12/19/24 08:59 Last Admin: 11/19/24 08:09 Dose: 5 mg Aspirin (Aspirin 81 Mg Ectab) 81 mg PO QDL JATINDER Stop: 12/19/24 11:29 Atorvastatin Calcium (Atorvastatin 20 Mg Tab) 20 mg PO QDL JATINDER Stop: 12/19/24 11:29 Lisinopril (Lisinopril 40 Mg Tab) 40 mg PO HS JATINDER Stop: 12/19/24 20:59 Nitroglycerin (Nitroglycerin Sl 0.4 Mg/Tab Tab) 0.4 mg SL Q5M PRN PRN Reason: Chest Pain Stop: 12/19/24 01:54 Vitamin D (Cholecalciferol 25 Mcg (1000 Units) Tab) 50 mcg PO QDL JATINDER Stop: 12/19/24 11:29 PG Care Time/CCT Total # of Minutes Spent Total Time Spent with Patient: Total time spent is greater than 50% in coordination of care (as documented) at patient's floor/unit and/or counseling patient: Coding Level of Care Code 08656 INT INP/OBS CARE 3/75MIN Diagnoses Syncope R55 Aortic stenosis I35.0 Hypertension I10 CAD (coronary artery disease) I25.10 Arrhythmia I49.9
[2024-11-19] MEDS: CHOLECALCIFEROL 25 MCG (1000 UNITS) TAB PO SCH (12:34)
[2024-11-19] MEDS: ATORVASTATIN 20 MG TAB PO SCH (12:34)
[2024-11-19] MEDS: ACETAMINOPHEN 325 MG TAB PO PRN (12:34)
[2024-11-19] MEDS: ASPIRIN 81 MG ECTAB PO SCH (12:35)
--- NOTE | 2024-11-19 15:37 | XCELERA ---
[id number]
--- NOTE | 2024-11-19 17:41 | Ultrasound Report ---
Technique: Carotid sonography was performed Findings: Mild atherosclerotic plaque is seen within both carotid bulbs. No significant stenosis is seen on coppola scale images. Antegrade flow is seen within both vertebral arteries. Peak systolic velocities are as follows: Right common carotid artery: 115 cm per second Right internal carotid artery: 88 cm per second Right external carotid artery: 129 cm per second Right ICA/CCA PSV ratio: 0.8 Left common carotid artery: 164 cm per second Left internal carotid artery: 73 cm per second Left external carotid artery: 148 cm per second Left ICA/CCA PSV ratio: 0.5 Impression: Bilateral carotid atherosclerosis, without significant stenosis Electronically signed by Stephon Alexander 11-19-2024 5:41 PM
[2024-11-20 07:02] LABS: Hematocrit (blood only) 40.1 % (42.0-52.0); Hemoglobin 13.7 g/dl (14.0-18.0); Immature Granulocytes # (auto) 0.03 K/uL (0.01-0.20); Immature Granulocytes % (auto) 0.5 %; Mean Corpuscular Hemoglobin 30.8 pg (25.0-34.0); Mean Corpuscular Volume 90.1 fL (80.0-100.0); Platelet Count 159 K/uL (130-400); RDW Standard Deviation 40.7 fL (36.4-46.3); Red Blood Count 4.45 M/uL (4.70-6.10); White Blood Count 5.99 K/ul (4.8-10.8)
[2024-11-20 07:17] LABS: Anion Gap 7.0 (3-11); Blood Urea Nitrogen 13.0 mg/dl (6-23); Calcium 9.1 mg/dl (8.6-10.3); Carbon Dioxide 27.0 mmol/L (21-32); Chloride 106.0 mmol/L (98-107); Creatinine Clr Calc Pharmacy 71.7 ml/min; Glucose 94.0 mg/dl (70-99(Fasting)); Magnesium 2.0 mg/dl (1.7-2.4); Potassium 3.8 mmol/L (3.5-5.1); Sodium 140.0 mmol/L (136-145)
[2024-11-20 08:15] VITALS: BP 141/87; PULSE 63; RESP 18; TEMP 97.7; O2SAT 95
--- NOTE | 2024-11-20 09:35 | Cardiology Progress Note ---
Date of Service November 20, 2024 Assessment & Plan (1) Syncope: (2) Aortic stenosis: (3) Hypertension: (4) CAD (coronary artery disease): (5) Arrhythmia: Plan ASSESSMENT/PLAN: 1. Syncope: Etiology uncertain but given acute event and very quick recovery feeling back to baseline, concerning for rhythm issue or pause. Continue telemetry while hospitalized. Avoid medications that can slow heart rate or further black AV node. No findings on telemetry to cause syncope but mild bradycardia. Recommend 30-day event monitor and if unremarkable, consider loop recorder in the outpatient setting. Carotid duplex without severe stenosis. No driving, which was discussed with patient while working up possible etiologies in the outpatient setting. 2. Cardiac arrhythmia: [facility] Request[facility] records but not yet available for review. 3. CAD: Previous MA reported and recalls having nonobstructive CAD per his report. Continue risk factor modification. No angina. Continue statin therapy, aspirin 81 mg daily. 4. Aortic stenosis: Nonsevere. Would not account for syncope at current degree of stenosis. Monitor in the outpatient setting with repeat echo in 1 year. 5. Hypertension: Normotensive to mildly hypertensive. No changes made at this time. 6. Disposition: [facility]. He has been seen by electrophysiology through [facility] (Dr. Rick), but has been receiving most of [facility]. Offered 30-day event monitor through [facility] as it can be arranged quickly however he declines and wants outpatient testing and [facility] only. This was communicated with Dr. Blair of the hospitalist service. Admission and Anticipated Discharge Date Admission Date: November 19, 2024 Subjective Patient seen this morning. He denies chest pain, shortness of breath, syncope, near syncope, palpitations, edema, or bleeding. He would like to go home. He states that he would like all follow-up and outpatient testing [facility]. He was unaccompanied. Physical Exam Physical Exam: Gen.: No acute distress. Alert. HEENT: Anicteric sclera. Neck: No JVD. Cardiac: Regular. Normal S1-S2. 2/6 early-mid peaking systolic ejection murmur best heard at the right upper sternal border. Pulmonary: Clear to auscultation bilaterally without wheezes, rales, or rhonchi. Abdomen: Soft, nontender, nondistended, with normoactive bowel sounds. No bruits noted. Extremities: 2+ radial pulses bilaterally. 2+ posterior tibialis pulses bilaterally. No edema or cyanosis. Results & Data Vital Signs (Past 12 Hours) Vital Signs Temp Pulse Pulse Resp BP Pulse Ox O2 Del Method 11/20/24 08:00 36.5 C 63 18 141/87 H 95 Room Air 11/20/24 07:00 57 L 11/20/24 05:36 36.6 C 55 L 16 139/97 96 Room Air 11/19/24 22:32 36.5 C 53 L 18 138/82 98 Room Air 11/19/24 21:46 48 L Laboratory Results Laboratory Results - last 24 hr 11/19/24 11/20/24 11:17 06:34 WBC 5.99 RBC 4.45 L Hgb 13.7 L Hct 40.1 L MCV 90.1 MCH 30.8 MCHC 34.2 RDW Std Deviation 40.7 RDW Coeff of Mike 12.3 Plt Count 159 MPV 10.2 Immature Gran % (Auto) 0.5 Neut % (Auto) 58.3 Lymph % (Auto) 24.5 Kenedy % (Auto) 13.4 Eos % (Auto) 2.8 Baso % (Auto) 0.5 Neut # (Auto) 3.49 Lymph # (Auto) 1.47 [place]y # (Auto) 0.80 H Eos # (Auto) 0.17 Baso # (Auto) 0.03 Immature Gran # (Auto) 0.03 Sodium 140 Potassium 3.8 Chloride 106 Carbon Dioxide 27 Anion Gap 7 BUN 13 Creatinine 0.93 Est Cr Clr Drug Dosing 71.7 eGFR 82.49 BUN/Creatinine Ratio 14.0 Glucose 94 POC Glucose 101 H Calcium 9.1 Phosphorus 3.2 Magnesium 2.0 Albumin 3.7 Diagnostic Findings Telemetry personally reviewed: Sinus rhythm with PACs and PVCs. Mild sinus bradycardia overnight. No significant pauses. No arrhythmia. Labs reviewed from 11/20/2024: Stable renal function, normal potassium, stable hemoglobin. Medications Administered Current Inpatient Medications Acetaminophen (Acetaminophen 325 Mg Tab) 650 mg PO Q6H PRN PRN Reason: Pain or Fever Stop: 12/19/24 01:54 Last Admin: 11/20/24 08:02 Dose: 650 mg Albuterol (Albuterol Hfa 8 Gm Inhaler) 2 puffs INH Q4H PRN PRN Reason: Wheezing Stop: 12/19/24 01:54 Amlodipine Besylate (Amlodipine Besylate 5 Mg Tab) 5 mg PO QAM [facility] Stop: 12/19/24 08:59 Last Admin: 11/19/24 08:09 Dose: 5 mg Aspirin (Aspirin 81 Mg Ectab) 81 mg PO QDL [facility] Stop: 12/19/24 11:29 Last Admin: 11/19/24 12:35 Dose: 81 mg Atorvastatin Calcium (Atorvastatin 20 Mg Tab) 20 mg PO QDL [facility] Stop: 12/19/24 11:29 Last Admin: 11/19/24 12:34 Dose: 20 mg Lisinopril (Lisinopril 40 Mg Tab) 40 mg PO HS [facility] Stop: 12/19/24 20:59 Last Admin: 11/19/24 20:54 Dose: 40 mg Nitroglycerin (Nitroglycerin Sl 0.4 Mg/Tab Tab) 0.4 mg SL Q5M PRN PRN Reason: Chest Pain Stop: 12/19/24 01:54 Vitamin D (Cholecalciferol 25 Mcg (1000 Units) Tab) 50 mcg PO QDL [facility] Stop: 12/19/24 11:29 Last Admin: 11/19/24 12:34 Dose: 50 mcg PG Care Time/CCT Total # of Minutes Spent Total Time Spent with Patient: Total time spent is greater than 50% in coordination of care (as documented) at patient's floor/unit and/or counseling patient: Coding Level of Care Code 52344 SUB INP/OBS CARE 3/50MIN Diagnoses Syncope R55 Aortic stenosis I35.0 Hypertension I10 CAD (coronary artery disease) I25.10 Arrhythmia I49.9
--- NOTE | 2024-11-20 13:15 | Discharge Summary ---
Date of Service November 20, 2024 Admission HPI Per Admitting Provider The patient is an 83-year-old male with a past medical history including coronary artery disease status post AR 2002, hypertension, CKD, dyslipidemia, right bundle branch block, first-degree heart block, ED, and asthma. 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 He reports that he did bump the back of his head when he fell, but has no residual discomfort. He had no previous occurrence of passing out. He reports that he has a dental infection that has caused him to eat significantly less than usual over the past day and a half, and was to see a dentist in the next few days. He and a friend went to [email or web address] after work, and he reports that he feels better after eating a sandwich there. He reports that he sees the [facility] as his primary physician, either in [place], or if it is more significant he goes to [place]. Workup in the emergency department included a CT scan of head which showed age-appropriate atrophy, chest x-ray which was negative, chemistry profile showed a glucose of 150, and CBC with differential was normal. Troponin was 21.4, with upper range 20.0. EKG shows sinus bradycardia with first-degree AV block with premature supraventricular complexes. Left axis deviation, right bundle branch block, septal infarct age undetermined. He was then referred for admission to the [facility] Admission Exam (Per Admitting) Constitutional The patient is awake, alert and oriented 3, well developed and well nourished, normocephalic and atraumatic, lying in bed and in no acute distress. HEENT--PERRL, EOMI, mucous membranes and oropharynx mildly dry Neck--supple. No JVD. No bruits. Thyroid normal, trachea midline, no adenopathy. Heart--normal S1 and S2. No murmurs, rubs or gallops. Lungs--clear bilaterally, no respiratory distress, no accessory muscle use. Abdomen--normal bowel sounds and soft. Extremities--no cyanosis or clubbing. No edema. Dermatologic--normal skin turgor, normal color, no abnormal lymph nodes, no rash. Neurologic--cranial nerves II through XII grossly intact. Rheumatologic--normal range of motion. Psychiatric--normal affect. Discharge Data Consultations 11/18/24 23:39 ED Decision to Admit Stat 11/19/24 07:41 Consult Cardiology Routine Hospital Course (1) Syncope: (2) Cardiac murmur: (3) Ectopic atrial rhythm: (4) First degree atrioventricular block by electrocardiography: Plan The patient is an 83-year-old male with a past medical history including coronary artery disease status post AR 2002, hypertension, CKD, dyslipidemia, right bundle branch block, first-degree heart block, ED, and asthma. 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 He reports that he did bump the back of his head when he fell, but has no residual discomfort. He had no previous occurrence of passing out. He reports that he has a dental infection that has caused him to eat significantly less than usual over the past day and a half, and was to see a dentist in the next few days. He and a friend went to [email or web address] after work, and he reports that he feels better after eating a sandwich there. He reports that he sees [facility] as his primary physician, either in [place], or if it is more significant he goes to [place]. Workup in the emergency department included a CT scan of head which showed age-appropriate atrophy, chest x-ray which was negative, chemistry profile showed a glucose of 150, and CBC with differential was normal. Troponin was 21.4, with upper range 20.0. EKG shows sinus bradycardia with first-degree AV block with premature supraventricular complexes. Left axis deviation, right bundle branch block, septal infarct age undetermined. He was then referred for admission to the [facility]. 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 Hyperlipidemia- Continue atorvastatin Dental infection- Patient reports outpatient appointment pending with dentistry Coding Level of Care Code 02909 INP/OBS DISCH >30 MIN Diagnoses Syncope R55 Cardiac murmur R01.1 Ectopic atrial rhythm I49.1 First degree atrioventricular block by electrocardiography I44.0 Time Spent (min) 35
--- NOTE | 2024-11-21 05:51 | Electrocardiogram Report ---
Test Reason : Blood Pressure : */* mmHG Vent. Rate : 59 BPM Atrial Rate : 59 BPM P-R Int : 268 ms QRS Dur : 138 ms QT Int : 470 ms P-R-T Axes : -5 -46 36 degrees QTcB Int : 465 ms Sinus bradycardia with 1st degree A-V block with Premature supraventricular complexes Left axis deviation Right bundle branch block Septal infarct , age undetermined Abnormal ECG When compared with ECG of 10-Feb-2003 06:53, Septal infarct is now Present Premature supraventricular complexes are now Present Confirmed by Donny Casey ([id number]) on 11/21/2024 5:51:29 AM Referred By: REFERRED SELF Confirmed By: Donny Casey
== END 2024-11-20 13:23 | disposition home or self-care (01) | DRG 312 ==
LOC: EDINP 20:11 → ED 20:11 → SUATTDRO 11-19 00:35 → 1E 11-19 01:54 → 2E 11-19 18:04